=== PATIENT | male | born 1995 | race Caucasian/White ===

== ENCOUNTER 2020-11-26 15:20 | Emergency (ER) | payer OTHER | END 2020-11-26 19:24 | disposition left against medical advice (07) | LOC: ER1 15:20 | DX: Z53.21 Procedure and treatment not carried out due to patient leaving prior to being seen by health care provider (principal) ==

== ENCOUNTER 2021-08-22 23:10 | Emergency (ER) | payer OTHER ==
[2021-08-23 00:31] LABS: HEMOGLOBIN 15.3 gm/dl (14.0-17.5); RED BLOOD COUNT 4.9 M/UL (4.20-5.50); WHITE BLOOD COUNT 4.5 K/UL (4.5-11.0)
[2021-08-23 00:59] LABS: BUN/CREATININE RATIO 22 (0-10)
== END 2021-08-23 03:36 | disposition home or self-care (01) ==
LOC: ER1 23:10
PROVIDERS: Nurse Practitioner
DX: G40.909 Epilepsy, unspecified, not intractable, without status epilepticus (principal); F41.9 Anxiety disorder, unspecified
CPT/HCPCS: 80053; 80307; 81001; 82550; 82553; 84484; 85025; 99284